=== PATIENT | female | born 1995 | race Caucasian/White ===

== ENCOUNTER 2017-08-26 18:24 | Emergency (ER) | payer OTHER ==
[~2017-08-26] VITALS: Ht 162.6 cm; Wt 104.3 kg
[2017-08-26 18:38] VITALS: BP 116/70
[2017-08-26] MEDS ORDERED: LITHIUM CARBON300 M6 (19:08)
[2017-08-26] MEDS ORDERED: ADDERALL XR 3030 MG PO (19:09)
== END 2017-08-26 19:16 | disposition home or self-care (01) ==
LOC: ER 18:24
DX: S40.021A Contusion of right upper arm, initial encounter (principal); F41.9 Anxiety disorder, unspecified; F31.9 Bipolar disorder, unspecified; F17.210 Nicotine dependence, cigarettes, uncomplicated; F10.99 Alcohol use, unspecified with unspecified alcohol-induced disorder; Z88.6 Allergy status to analgesic agent; Z88.5 Allergy status to narcotic agent; X58.XXXA Exposure to other specified factors, initial encounter; Y93.89 Activity, other specified; Y92.89 Other specified places as the place of occurrence of the external cause; Y99.8 Other external cause status